=== PATIENT | male | born 1965 | race Hispanic/Latino ===

== ENCOUNTER → 2019-01-16 | Outpatient (CLI) | payer OTHER | LOC: LAB.O 10:39 | PROVIDERS: ATTEND Internal Medicine | DX: C20 Malignant neoplasm of rectum (principal) ==

== ENCOUNTER → 2019-02-11 | Outpatient (CLI) | payer OTHER | LOC: YCFC.O 14:23 | PROVIDERS: ATTEND Family Medicine | DX: K74.60 Unspecified cirrhosis of liver (principal); E11.9 Type 2 diabetes mellitus without complications; Z12.5 Encounter for screening for malignant neoplasm of prostate; R53.83 Other fatigue ==

== ENCOUNTER 2019-02-17 16:10 | Inpatient (IN) | payer OTHER ==
[2019-02-17] MEDS ORDERED: SODIUM CHLORIDE 0.9% 1000ML 1,000 ML IVS ONE ×2 (16:24→20:57)
[2019-02-17] MEDS ORDERED: ONDANSETRON INJ 4 MG/2 ML VIAL IV ONE (16:24)
--- NOTE | 2019-02-17 16:25 | ED.PDOC ---
History of Present Illness - General Chief Complaint: GI Problem Time Seen by Provider: 02/17/19 16:23 Information Source: patient Exam Limitations: no limitations - History of Present Illness Initial Comments: 53 yo M with PMH sig for liver cancer and cirrhosis d/c from hospice several weeks ago, trying to establish care with PCP and pain management as he is currently on [place] and methadone from hospice who presents from Dr. Parker's office for abd pain with associated n/v. Pt states he has chronic abd pain in the RUQ/epigastric region, consistent with today but it is worse, he thinks that his refill of methadone was decreased in strength from his normal. Emesis in [place], he has been unable to keep anything down. Denies recent travel, has been in [place] for two years, his hospice was from [place]. Denies f/c, cough, congestion, CP, SOB, diarrhea, blood in stool, urinary sx. Review of Systems - Review of Systems Constitutional: Denies: chills, fever EENTM: Denies: ear pain, nose congestion, throat pain Respiratory: Denies: cough, orthopnea Cardiology: Denies: chest pain, palpitations, syncope Gastrointestinal/Abdominal: States: abdominal pain, nausea, vomiting. Denies: constipation, diarrhea Genitourinary: Denies: dysuria, frequency, hematuria Musculoskeletal: Denies: back pain, neck pain Skin: Denies: lesions, rash Neurological: Denies: headache, numbness, weakness Family Medical History - Family History Mother Family History: Unknown Father Family History: No Known Living Status: Still Living Age at (years of age): 82 Physical Exam - Physical Exam General Appearance: Alert, Comfortable, No apparent distress, Well Developed, Well Nourished, Other - Appears chronically ill Eyes, Ears, Nose, Throat Exam: PERRL/EOMI, other - dry mucous membranes, no scleral icterus Neck: non-tender, full range of motion, supple, normal inspection Respiratory: lungs clear, normal breath sounds, no respiratory distress, no accessory muscle use Cardiovascular/Chest: normal peripheral pulses, regular rate, rhythm, no edema, no gallop, no JVD, no murmur Peripheral Pulses: No deficit Gastrointestinal/Abdominal: normal bowel sounds, soft, no pulsatile mass, tenderness - mild to epigastric and RUQ, hepatomegaly Back Exam: no CVA tenderness Extremity: normal range of motion, non-tender, normal inspection, no pedal edema, no calf tenderness, normal capillary refill Neurologic: no motor/sensory deficits, alert, normal mood/affect, oriented x 3 Skin Exam: normal color, warm/dry Progress - Progress Progress: I have explained and reviewed all results with the pt. I explained the need for admission, pt agrees with plan, all questions and concerns addressed. Dr. Parker came down to see pt, he discussed with midlevel Chente Ohara for admitting. Chente subsequently talked to client service consultant surgeon Dr. Andres. Chente then discussed with me consult, Dr. Andres would like to defer antibx at this time, Chente accepts for admission. Anna Pruitt MD Emergency Medicine Physician Billing Number [id number] - Results/Orders Results/Orders: 02/17/19 18:20 BLOOD CULTURE Stat Laboratory Results - last 24 hr 02/17/19 02/17/19 02/17/19 16:24 16:24 16:24 WBC 5.1 RBC 3.98 L Hgb 11.8 L Hct 35.9 L MCV 90.2 MCH 29.8 MCHC 33.0 RDW 13.3 Plt Count 207 MPV 6.8 L Absolute Neuts (auto) 3.90 Absolute Lymphs (auto) 0.60 L Absolute Monos (auto) 0.50 Absolute Eos (auto) 0.00 Absolute Basos (auto) 0.00 Neutrophils % 76.3 Lymphocytes % 12.5 L Monocytes % 9.9 H Eosinophils % 0.7 L Basophils % 0.6 Sodium 136 Potassium 3.2 L Chloride 96 L Carbon Dioxide 27 Anion Gap 16.2 BUN 33 H Creatinine 1.95 H BUN/Creatinine Ratio 16.9 Random Glucose 136 H Serum Osmolality 281.3 Calcium 8.6 Total Bilirubin 2.0 H AST 30 ALT 15 Alkaline Phosphatase 106 Troponin I Serum Total Protein 9.6 H Albumin 3.2 Globulin 6.4 H Albumin/Globulin Ratio 0.5 L Lipase 33 02/17/19 16:24 WBC RBC Hgb Hct MCV MCH MCHC RDW Plt Count MPV Absolute Neuts (auto) Absolute Lymphs (auto) Absolute Monos (auto) Absolute Eos (auto) Absolute Basos (auto) Neutrophils % Lymphocytes % Monocytes % Eosinophils % Basophils % Sodium Potassium Chloride Carbon Dioxide Anion Gap BUN Creatinine BUN/Creatinine Ratio Random Glucose Serum Osmolality Calcium Total Bilirubin AST ALT Alkaline Phosphatase Troponin I < 0.02 Serum Total Protein Albumin Globulin Albumin/Globulin Ratio Lipase CT abd/pelvis: EXAM: Abdomen/Pelvis w/Contrast CLINICAL INDICATION: Abdominal pain. COMPARISON: There is no previous study for comparison. TECHNIQUE: The CT scan was done using contiguous axial 5 mm postcontrast sections through the abdomen and pelvis including IV contrast. This exam was performed according to our departmental dose-optimization program, which includes automated exposure control, adjustment of the mA and/or kV according to patient size and/or use of iterative reconstruction technique. FINDINGS: The visualized portions of the lung bases reveal consolidation in the posterior left lower lobe. Mild bibasilar scarring is noted. There is a moderate amount of free fluid throughout the abdomen including overlying the liver, somewhat compressing and deforming the right hepatic lobe. The liver is otherwise unremarkable. Gallstones are noted in the gallbladder. The spleen is unremarkable. The pancreas is diffusely atrophic. The adrenal glands and kidneys are unremarkable. There is no free air. The peritoneum appears mildly thickened and enhancing especially in the upper abdomen anteriorly. There are several mildly dilated fluid-filled loops of small bowel in the anterior mid to lower abdomen and pelvis. The aorta is normal in caliber. IMPRESSION: 1. Moderate free fluid throughout the abdomen. Somewhat thickened and enhancing appearance of the peritoneum, which may indicate underlying infectious process. 2. Cholelithiasis. 3. Multiple mildly dilated loops of small bowel suggesting either mild small bowel obstruction versus ileus. Electronically signed by: Michoacano Aguilera MD 02/17/2019 5:33 PM ASSISTANT PROFESSOR OF [employer]IMINAL JUSTICE Vital Signs - 24 hr 02/17/19 02/17/19 16:16 19:01 Temperature 98.0 F 96.4 F L Pulse Rate [ 83 67 left brachial] Respiratory 20 20 Rate Blood Pressure 137/86 132/80 [left brachial] O2 Sat by Pulse 100 100 Oximetry - EKG/XRAY/CT EKG: Sinus Comments: Low voltage QRS, poor R wave progression, T wave flattening, norm ST Departure - Departure Clinical Impression: Small bowel obstruction, Chronic anemia CKD (chronic kidney disease) Qualifiers: Chronic kidney disease stage: unspecified stage Qualified Code(s): N18.9 - Chronic kidney disease, unspecified Time of Disposition: 17:52 Disposition: Admit Patient Condition: Fair Home Medications: Ambulatory Orders Furosemide 40 mg PO DAILY 02/17/19 HYDROcodone 10MG/APAP 325MG [[place] 103[address]] 1 ea PO Q4H PRN 02/17/19 Methadone HCl 15 mg PO BID 02/17/19 Neomycin Sulfate 1,000 mg PO DAILY 02/17/19 Promethazine HCl 25 mg PO Q6H PRN 02/17/19 Spironolactone 25 mg PO DAILY 02/17/19
--- NOTE | 2019-02-17 17:35 | CT ---
EXAM: Abdomen/Pelvis w/Contrast CLINICAL INDICATION: Abdominal pain. COMPARISON: There is no previous study for comparison. TECHNIQUE: The CT scan was done using contiguous axial 5 mm postcontrast sections through the abdomen and pelvis including IV contrast. This exam was performed according to our departmental dose-optimization program, which includes automated exposure control, adjustment of the mA and/or kV according to patient size and/or use of iterative reconstruction technique. FINDINGS: The visualized portions of the lung bases reveal consolidation in the posterior left lower lobe. Mild bibasilar scarring is noted. There is a moderate amount of free fluid throughout the abdomen including overlying the liver, somewhat compressing and deforming the right hepatic lobe. The liver is otherwise unremarkable. Gallstones are noted in the gallbladder. The spleen is unremarkable. The pancreas is diffusely atrophic. The adrenal glands and kidneys are unremarkable. There is no free air. The peritoneum appears mildly thickened and enhancing especially in the upper abdomen anteriorly. There are several mildly dilated fluid-filled loops of small bowel in the anterior mid to lower abdomen and pelvis. The aorta is normal in caliber. IMPRESSION: 1. Moderate free fluid throughout the abdomen. Somewhat thickened and enhancing appearance of the peritoneum, which may indicate underlying infectious process. 2. Cholelithiasis. 3. Multiple mildly dilated loops of small bowel suggesting either mild small bowel obstruction versus ileus. Electronically signed by: Michoacano Aguilera MD 02/17/2019 5:33 PM CARDIAC TECHNOLOGIST
[2019-02-17] MEDS ORDERED: ONDANSETRON INJ 4 MG/2 ML VIAL IV PRN (20:53)
[2019-02-17] MEDS ORDERED: SODIUM CHLORIDE 0.9% (FLUSH) 10 ML SYG IV PRN (20:53)
[2019-02-17] MEDS: IV SET AND CAP CHANGE INJ INJ SCH (21:14)
[2019-02-17] MEDS: MORPHINE SULFATE INJ 10 MG/ML VIAL IV PRN (21:27)
[2019-02-17] MEDS: KCL 20MEQ/D5NS 1,000 ML IVS PRN (22:19)
[2019-02-18] MEDS: PANTOPRAZOLE SODIUM IV 40 MG VIAL IV SCH (06:06)
[2019-02-18] MEDS: KCL 20MEQ/D5NS 1,000 ML IVS PRN (06:31)
--- NOTE | 2019-02-18 07:44 | RAD ---
EXAM DESCRIPTION: Abdomen Flat Upright CLINICAL HISTORY: SBO COMPARISON: None. FINDINGS: AP supine and upright views of the abdomen show air-filled mildly dilated loops of small bowel in the central abdomen with scattered air-fluid levels. Mild bowel wall thickening is seen. There is seen in the descending to rectosigmoid colon. Multiple calcifications in the right upper quadrant of the abdomen. No free intraperitoneal air. Mild blunting of the left costophrenic angle. IMPRESSION: Findings suggest partial mid small bowel obstruction. Continued follow-up recommended. Mild bowel wall thickening of loops of small bowel central abdomen are seen. Small left pleural effusion is identified. Electronically signed by: Wai Dahl MD 02/18/2019 7:[address] [facility]
--- NOTE | 2019-02-18 08:59 | HP ---
SUPERVISING PHYSICIAN: Carlton Jim MD CHIEF COMPLAINT: Nausea, vomiting, abdominal pain. HISTORY OF PRESENT ILLNESS: Mr. Page is a 51-year-old male patient with a history of liver cancer and cirrhosis having previously been on hospice. He was trying to get established with a primary care physician for pain management as he is on [place] and methadone from his hospice. He saw Dr. Parker in the office today and was having some abdominal pains with associated nausea and vomiting. He endorsed that he has been having right upper quadrant and epigastric pain on and off for the last 4 days and unable to hold any solid food down. He does have a longstanding history of alcoholism, but has not had a drink in over 4 years. He endorses that every time he eats, he vomits, and nothing has been working including liquid diet as well as Phenergan. He denied any chest pains, bloody stools, dysuria or significant cough. Of significance, he was just taken off hospice for cirrhosis and liver cancer while in [place] and just moved to [place] as he does have family here. In the clinic, given his findings and history, he was sent to the Emergency Room for evaluation for additional laboratory studies and imaging. His white count was normal at 5,100. Chemistry showed just a mildly low potassium of 3.2. BUN elevated at 33, creatinine 1.95. Bilirubin was slightly elevated, but AST, ALT and alkaline phosphatase were all within normal limits as well as troponin. Lipase was also within normal limits at 33. He had an abdominopelvic CT with contrast given his history of abdominal pain and cirrhosis and cancer. Radiology noted there was moderate free fluid throughout the abdomen with somewhat thickened and enhanced appearance of the peritoneum along with cholelithiasis and multiple mildly dilated loops of small bowel suggesting either a small bowel obstruction or ileus. Dr. Andres requested the patient be admitted for surgical consultation given his history and questionable small bowel obstruction. Dr. Andres was consulted prior to admission and he recommended the patient be admitted for medical management of his small bowel obstruction versus ileus and further evaluation and additional testing. He was admitted in stable condition. PAST MEDICAL HISTORY: 1. Cirrhosis with liver cancer diagnosed 4 years previously. 2. Questionable hepatitis C infection. 3. Diabetes mellitus on oral therapy. PAST SURGICAL HISTORY: 1. Cryotherapy for treatment of underlying cirrhosis. No other listed major surgeries or procedures. HOME MEDICATIONS: 1. Spironolactone 25 mg daily. 2. Phenergan 25 mg q.6h. as needed. 3. Methadone 15 mg b.i.d. 4. Neomycin 1000 units daily. 5. [place] 10/325 1 q.4h. as needed. 6. Lasix 40 mg daily. ALLERGIES: NO KNOWN DRUG ALLERGIES. FAMILY HISTORY: Noncontributory. 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 He recently moved from [place] to [place] and lives with his brother. He does have a remote history of smoking 20 years previously, but quit well over 20 years ago. He does have a history of alcohol abuse, but has not had a drink in over 4 years. REVIEW OF SYSTEMS: CONSTITUTIONAL: Negative for any fevers, chills. HEENT: Negative for sore throats, earaches, nasal congestion, headaches, vision changes. RESPIRATORY: Denies coughing, orthopnea or exertional dyspnea. CARDIOVASCULAR: Negative for chest pain, palpitations or syncopal episodes. GASTROINTESTINAL: As noted in history of present illness, abdominal pain, nausea and vomiting. Denies constipation or diarrhea. GENITOURINARY: Negative for dysuria, hematuria, polyuria. MUSCULOSKELETAL: Negative for back pain, neck pain. SKIN: Negative for lesions, rashes or moles. NEUROLOGIC: Negative for headaches, dizziness, numbness, weakness, seizures, ataxia or other focal deficits. PHYSICAL EXAMINATION: VITAL SIGNS: On admission, temperature 98. Pulse 83. Blood pressure 137/86. Saturation 100% on room air. Respirations 20. Admission weight 69.5 kg. GENERAL: The patient does appear ill, cachectic, but he is well kept, well groomed, pleasant and alert. HEENT: Tympanic membranes clear bilaterally. Oropharynx is pink with dry mucous membranes. NECK: Supple, nontender with full range of motion. No jugular venous distention noted. RESPIRATORY: Lungs clear to auscultation bilaterally without any rhonchi, wheezes or rales. CARDIOVASCULAR: Regular rate and rhythm without any appreciable murmurs, gallops, or rubs. ABDOMEN: Thin, soft with notable tenderness to palpation over the epigastric region just to above the umbilicus. No rebound tenderness. Positive bowel sounds. EXTREMITIES: There is no edema. NEUROLOGIC: The patient is alert and oriented times three. LABORATORY: White count 5,100, hemoglobin 11.8, hematocrit 35.9, platelet count 207,000. Differential without left shift. Coagulations studies pending. Chemistry showed sodium 136, potassium 3.2, BUN 33, creatinine 1.95, calcium 8.6, bilirubin slightly elevated at 2.0. Alkaline phosphatase, AST and ALT were all within normal limits. Troponin less than 0.02. Lipase normal at 33. Urinalysis showed trace intact blood, small amount of bilirubin and urobilinogen, otherwise within normal limits. MICROBIOLOGY: Blood cultures pending. RADIOLOGY: Abdominopelvic CT with contrast per radiologic interpretation shows multiple mildly dilated loops of small bowel suggestion small bowel obstruction or ileus along with cholelithiasis and some moderate free fluid throughout the abdomen with some somewhat thickened and dense appearance of the peritoneum. ASSESSMENT: 1. Acute abdominal pain with a history of cirrhosis and liver cancer. 2. Nausea and vomiting witch associated abdominal pain with CT findings concerning for a possible small bowel obstruction versus ileus with surgical consultation pending. 3. Diabetes mellitus, type 2, on oral therapy. 4. History of chronic tobacco and alcohol abuse with the patient being alcohol free for over 4 years. 5. Renal insufficiency, likely prerenal azotemia due to some mild dehydration. PLAN: Mr. Page is going to be admitted for questionable small bowel obstruction. I will get a consultation with Dr. Andrse. The patient will be NPO. He will be on pain management and fluids and antiemetics as need. He will need additional imaging study in the morning to include gallbladder which will be pending followup with Dr. Andres. He will be on pain management with morphine. If he continues to have persistent nausea and vomiting, we will have to consider possible placement of NG tube. We will follow labs in the morning and add in addition to that a PT, PTT and ammonia level. I would anticipate his length of stay to be 2 to 3 days. We will put him on some aggressive fluid management while he is NPO. He will be on sliding scale per insulin protocol. We will hold on DVT prophylaxis until we can get additional labs in the morning and followup with Dr. Andres. Until the patient can transition to outpatient management, we will continue to monitor and treat as needed. #[id number] [facility]
[2019-02-18] MEDS: KCL 40 MEQ/D5 1/2NS 1,000 ML IVS PRN ×2 (09:25→17:44)
--- NOTE | 2019-02-18 10:52 | US ---
EXAM DESCRIPTION: Abdomen,Complete: Ultrasound. CLINICAL HISTORY: 53 years Malegallstones COMPARISON: CT scan abdomen and pelvis on the same visit. TECHNIQUE: Transabdominal scanning: grayscale and Doppler modes. FINDINGS: Peritoneal fluid in all 4 quadrants. Gallbladder: Wall thickness abutting the liver 2.8 mm. Over 4 mm on the free edge, commonly seen with ascites. 5.4 mm echogenic object in the gallbladder wall/lumen, no acoustic shadowing and nonmobile. A second similar-appearing and similar size object measuring 6.1 mm. Phrygian cap or septation near the neck of the gallbladder. Multiple mobile gallstones in the dependent portion of the gallbladder which are echogenic and also acoustic shadowing. No fluid on the hepatic wall. Nontender with transducer pressure. Common bile duct: 5.3 mm normal caliber. Liver: Long axis right lobe 15.5 cm. Smooth capsule. Heterogeneous echogenicity. Normal caliber of the portal vein with hepatopedal flow. Normal caliber of the ducts. Pancreas: Partially visualized. Duct not dilated.. Abdominal aorta: Not well seen. IVC: visualized; normal caliber. Spleen normal echogenicity; long axis measurement is 14 cm. Right kidney: 10.1 cm long axis. Mid renal cortical thickness 11 mm. Increased echogenicity equal to the liver. No echogenic stones or hydronephrosis. Left kidney: 10.1 cm Long axis. Normal cortical thickness and echogenicity. No echogenic stones or hydronephrosis. IMPRESSION: 1. Gallbladder contains at least 2 echogenic mobile gravity dependent stones which were also seen on the CT scan. No wall thickness. At least 2 wall polyps, nonmobile, which may represent the radiodense objects seen in the CT gallbladder which were non gravity dependent. Nontender with transducer pressure. Normal wall thickness on the hepatic side. Common bile duct normal caliber. 2. 4 large quadrants of peritoneal ascites. 3. Normal size of the liver and normal vascular flow and caliber of the ducts. Heterogeneous density. Smooth capsule. Pancreas not well seen. Abdominal aorta not well seen. 4. Right renal cortical thinning and increased echogenicity with left kidney unremarkable. Electronically signed by: Guerrero Davison MD 02/18/2019 10:51 AM YARD SPECIALIST
[2019-02-18] MEDS ORDERED: SODIUM PHOS/BIPHOS ENEMA ADULT 133 ML BTTL PR ONE (14:21)
--- NOTE | 2019-02-18 18:47 | PN ---
DATE: 02/18/19 SUPERVISING PHYSICIAN: Wyatt Jim M.D. SUBJECTIVE: The patient is sitting up in bed. He states he feels much better. He has had some mild nausea but no vomiting since yesterday. He still complains that his belly hurts, but again that is improving. Denies chest pain, constipation or diarrhea. OBJECTIVE: VITAL SIGNS: Temperature 98.7, heart rate 64, blood pressure 121/74, respiratory rate 16, O2 saturation 99% on room air. RESPIRATORY: Essentially clear to auscultation bilaterally. CARDIAC: Regular rate and rhythm. GASTROINTESTINAL: Abdomen is soft. It is slightly tender to the epigastric area. There is no rebound tenderness or guarding. Bowel sounds are positive. NEUROLOGIC: He is awake, alert and oriented times three. LABORATORY: WBCs are 3,100, hemoglobin 9.9, hematocrit 29.7. Electrolytes are basically within normal limits with the exception of his potassium is slightly low at 3.5 and calcium is low at 8.1, bilirubin is 1.3 with a direct bilirubin of 0.6 and indirect bilirubin of 0.7. Preliminary blood cultures are negative to date. Abdominal x-ray shows findings to suggest partial mid small bowel obstruction. Continued followup recommended. Mild bowel wall thickening of loops of small bowel central abdomen are seen. Small left pleural effusions identified. Abdominal ultrasound shows: 1. Gallbladder contains at least 2 echogenic mobile gravity dependent stones which are also seen on the CT scan. No wall thickness. At least 2 wall polyps, nonmobile which may represent the radiodense objects seen in the CT gallbladder which were non-gravity dependent, non-tender with transducer pressure normal wall thickness on the hepatic side, bile duct normal caliber. 2. Four large quadrants of peritoneal ascites. 3. Normal size of the liver and normal vascular flow and caliber of the ducts. Heterogeneous density. Smooth capsule. Pancreas not well seen. Abdominal aorta not well seen. 4. Right renal cortical thinning and increased echogenicity with left kidney unremarkable. All other labs and films have been reviewed via the EMR. ASSESSMENT: 1. Acute abdominal pain with a history of cirrhosis and liver cancer. 2. Nausea and vomiting with associated abdominal pain with CT findings concerning for a possible small bowel obstruction versus ileus. 3. Diabetes mellitus, type 2, on oral therapy. 4. History of chronic tobacco abuse, including vaping as well as alcohol abuse. The patient has been alcohol free for over 4 years. 5. Renal insufficiency, likely prerenal azotemia due to some mild dehydration. 6. Constipation. PLAN: We will continue present supportive care. Dr. Andres has seen the patient. He did recommend that I speak with a GI consult. I spoke with Dr. Walls with [facility] and at this point he recommends that evaluation for a paracentesis to be done which would make the patient more comfortable and to continue to treat him as a small bowel obstruction. He will need to see one of the physicians from [facility] in the next 1 to 2 weeks for further evaluation of his liver as well as his abdominal problems. I did order an abdominal sonogram and Dr. Andres plans to do a paracentesis tomorrow at 9:30. We have changed his IV fluids and will continue to give him bowel rest. He has had a [place] enema and I have ordered lab and x-ray for in the morning. Will continue to monitor closely and follow as needed. #[id number] [facility]
--- NOTE | 2019-02-18 20:02 | CONS ---
DATE OF CONSULTATION: 02/18/19 REFERRING PHYSICIAN: Hospital[facility] Service[facility] and Wyatt Jim M.D. HISTORY OF PRESENT ILLNESS: The patient is a 51 year-old male who was admitted after seeing Dr. Parker in the clinic. He states that he has a history of hepatic cirrhosis. He is an alcoholic that no longer drinks and was treated for a malignancy of his liver. He was on hospice with an expectation to live for two years after the treatment of liver tumor, however he is now 4-1/2 years and he has developed nausea and vomiting with some discomfort, but he has been unable to hold down even liquids. His last bowel movement has been quite some time. I have been asked to help with further workup and treatment once his information is obtained. The patient does not have biopsy reports or oncology reports. PAST MEDICAL HISTORY: 1. Cirrhosis with liver cancer. 2. Hepatitis C. 3. Possibly diabetes mellitus. PAST SURGICAL HISTORY: 1. He has undergone cryotherapy for the tumor. CURRENT MEDICATIONS: 1. Spironolactone. 2. Phenergan. 3. Methadone. 4. Neomycin. 5. Woolwine. 6. Lasix. 7. The patient also told me Lactulose. ALLERGIES: NO KNOWN DRUG ALLERGIES. FAMILY HISTORY: Noncontributory. 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 Moved from [place] to [place] 2 years ago. He smoked but quit over 20 years ago. Probably has a 20 pack year history of tobacco use. He has a history of alcohol abuse but has not had a drink in 4 years. REVIEW OF SYSTEMS: There has been no bloody vomitus. No melena. No hematemesis. There has been some weight loss. The patient states that his abdomen, which has been distended multiple times in the past, is only minimally distended now. He denies problems with voiding. PHYSICAL EXAMINATION: VITAL SIGNS: GENERAL: Awake, alert and cooperative and in no acute distress. HEENT: Sclera are nonicteric. Mucous membranes are moist. NECK: Without adenopathy. BACK: Without CVA tenderness. CHEST: He has equal breath sounds bilaterally. HEART: Regular rhythm. ABDOMEN: Soft. There is mild tenderness, especially in the epigastrium without discrete mass. RECTAL: Examination is deferred. EXTREMITIES: Without clubbing, cyanosis or edema. LABORATORY: White count 5,000 on admission. It is now down to 3.1. Hemoglobin went from 11.8 to 9.9. Platelet count is within normal limits. He has a normal differential. Liver functions revealed a bilirubin of 2, everything else was within normal limits. Lipase was within normal limits. Blood cultures were ordered. CT scan of the abdomen reveals dilated loops of small bowel consistent with a partial small bowel obstruction or ileus. He has cholelithiasis and free fluid, and stool in the rectum. Today's ultrasound reveals fluid with gallstones but no acute changes consistent with cholecystitis. Today's x-ray of the abdomen reveals continued small bowel dilation consistent with partial ileus or partial small bowel obstruction. IMPRESSION: 1. Acute nausea and abdominal pain consistent for small bowel obstruction versus ileus. 2. History of cirrhosis and liver cancer which is not discernible from the CT scan or the ultrasound. 3. Ascites of uncertain etiology. 4. Diabetes. 5. Alcohol abuse. PLAN: The plan will be to perform a sonogram guided paracentesis for culture, cytology and any other needed testing. Will also culture and also give an enema in an attempt to get his bowels to begin to work as there is a large amount of stool in the rectum. #[id number] [facility]
[2019-02-19] MEDS: KCL 40 MEQ/D5 1/2NS 1,000 ML IVS PRN ×3 (01:05→16:49)
[2019-02-19] MEDS: PANTOPRAZOLE SODIUM IV 40 MG VIAL IV SCH (06:28)
--- NOTE | 2019-02-19 07:35 | RAD ---
EXAM DESCRIPTION: Abdomen Flat Upright CLINICAL HISTORY: fu part bowel obstruction COMPARISON: February 18, 2019 FINDINGS: AP supine and upright views of the abdomen show air-filled dilated loops of small bowel throughout the central abdomen with scattered air-fluid levels. Small amount of air in the colon. No free intraperitoneal air. Multiple calcified gallstones in the right upper quadrant of the abdomen are seen area Mild blunting of the left costophrenic angle. Linear interstitial thickening in the left lower lobe retrocardiac region is seen. IMPRESSION: Abdominal series continues to demonstrate at least moderate partial small bowel obstruction. More air is seen in the colon on today's exam than previous although the air-filled dilated loops of small bowel are similar to slightly increased from previous. Continued follow-up is recommended. Small left pleural effusion with probable atelectasis or infiltrate in the left lower lobe retrocardiac region. Cholelithiasis. Electronically signed by: Wai Dahl MD 02/19/2019 7:33 AM [facility]
--- NOTE | 2019-02-19 10:48 | OP ---
DATE OF PROCEDURE: 02/19/19 PREOPERATIVE DIAGNOSIS: 1. Ascites of uncertain etiology. POSTOPERATIVE DIAGNOSIS: 1. Ascites of uncertain etiology. PROCEDURE PERFORMED: 1. Sonographically guided paracentesis. SURGEON: Zheng Andres MD. RUG FRAME MOUNTER: None. ANESTHESIA: Local infiltration of 1% lidocaine. INDICATION: The patient is a 53-year-old male who is said to have a longstanding diagnosis of hepatocellular carcinoma and cirrhosis. He had been under the care of people in [place], [place]. He had moved here a couple of years ago and has been on hospice, but has done well generally on oral diuretics. I have seen him and he also has a question of a partial small bowel obstruction. There appears to be some mass effect on some of the CT scan pictures, so a diagnostic paracentesis is proposed and will be done today. FINDINGS: Approximately 2400 mL of bloody fluid was obtained without difficulty. PROCEDURE: The patient was left flat in his bed with the head of the bed slightly elevated. He was examined by the hospital technician and a good pocket was noted in the midline in the lower abdomen. The abdomen was prepped on the patient's left side of the probe, which is essentially in the midline, and draped. When this was done, local infiltration of anesthesia was obtained and a 22 gauge needle was introduced under ultrasound guidance into the fluid collection and a small amount of fluid was obtained. Local anesthesia was placed in the subcutaneous tissues. When this was done, a stab wound was made with an 11 blade and paracentesis needle was introduced under direct vision into the abdominal cavity. Fluid was obtained. The needle was withdrawn and the catheter advanced. When this was done, approximately 240 mL of fluid was obtained using the three-way stopcock and syringe. The specimens were taken from this fluid for culture and the chemistries. When this was done, it was connected to suction canisters and the remaining fluid was obtained without difficulty. The catheter was removed. The space was obliterated with massage and sterile band-aid was placed over the incision. The patient tolerated the procedure well. There was no blood loss identified. #[id number] [facility]
[2019-02-19] MEDS: LACTULOSE SYRUP 20 GM/30 ML UD PO SCH ×2 (10:59→15:22)
--- NOTE | 2019-02-19 11:07 | US ---
EXAM DESCRIPTION: Paracentesis: Ultrasound CLINICAL HISTORY: paracentesis COMPARISON: CT scan of the abdomen February 17 and ultrasound scan of the abdomen February 18. TECHNIQUE: The procedure was performed by Dr. Andres. Sterile preparation and technique. Ultrasound guidance prior to procedure to localize site for insertion of catheter, anterior abdominal wall. Specimens for cytology and culture were collected for laboratory evaluation. 2300 mL fluid was removed. FINDINGS: Scanning of all 4 quadrants of the abdomen. Moderate amount of fluid in each quadrant. Images taken during the procedure shows the echogenic paracentesis catheter within the fluid collection in the midline lower abdomen. IMPRESSION: Ultrasound prior to, and during paracentesis. 2300 mL of fluid was removed. Pathology reports pending. Electronically signed by: Guerrero Davison MD 02/19/2019 11:06 AM HYDRAMATIC SPECIALIST
[2019-02-19] MEDS: MORPHINE SULFATE INJ 10 MG/ML VIAL IV PRN ×2 (19:14→22:02)
[2019-02-20] MEDS: KCL 40 MEQ/D5 1/2NS 1,000 ML IVS PRN ×2 (00:31→08:36)
[2019-02-20] MEDS: PANTOPRAZOLE SODIUM IV 40 MG VIAL IV SCH (06:15)
--- NOTE | 2019-02-20 08:17 | RAD ---
EXAM DESCRIPTION: Abdomen Flat Upright: CR/DR/XR. CLINICAL HISTORY: SBO. ascites. COMPARISON: Abdomen flat and upright February 19. TECHNIQUE: 2 views. Abdomen and pelvis supine and abdomen and upper chest upright. FINDINGS: Distention still noted in the mid jejunum and proximal ileum. Small air-fluid levels. No free air. Fecal material in the proximal and mid colon with mostly gas in the rectosigmoid. Hazy appearance of the abdomen consistent with ascites. No free air under the diaphragms. Density in the left base abutting the diaphragm. IMPRESSION: Minimal distention of the distal jejunum or proximal ileum but no significant air-fluid levels. Stable since the prior study. No free air. Receiving fecal material in the colon with gas in the rectosigmoid. Atelectasis versus infiltrate in the left lung base stable. Electronically signed by: Guerrero Davison MD 02/20/2019 8:16 AM [facility]
--- NOTE | 2019-02-20 09:24 | PN ---
SUPERVISING PHYSICIAN: Carlton Jim MD DATE: 02/19/19 SUBJECTIVE: The patient is sitting up in bed. He had paracentesis earlier today by Dr. Andres. They removed about 2400 mL. He tolerated it well. He has no complaints at this point. He denies any shortness of breath, nausea or vomiting. His abdomen is still somewhat tender, but it has improved since yesterday. OBJECTIVE: VITAL SIGNS: Temperature 98.2. Heart rate 67. Blood pressure 116/78. Respiratory rate16. O2 saturation 100% on room air. RESPIRATORY: Essentially clear to auscultation bilaterally. CARDIAC: Regular rate and rhythm. GASTROINTESTINAL: Abdomen is soft. It is nondistended. He is mildly tender in the epigastric and umbilical area. Bowel sounds are positive. NEUROLOGIC: He is awake, alert and oriented times three. LABORATORY: WBCs 3,600, hemoglobin 9.9, hematocrit 30.2. Electrolytes are basically within normal limits. Creatinine is 1.41, bilirubin 1.1, ammonia 65. His abdominal series continues to demonstrate at least moderate to partial small bowel obstruction. More air is in the colon on today's exam than previous although the air-filled dilated loops of small bowel are similar to slightly increased from previous. Continued followup recommended. A small left pleural effusion with probable atelectasis or infiltrate in the left lower lobe, retrocardiac region. Cholelithiasis. All other labs and films have been reviewed via the EMR. ASSESSMENT: 1. Acute abdominal pain with a history of cirrhosis and liver cancer. 2. Nausea and vomiting with associated abdominal pain with CT findings concerning for a possible small bowel obstruction versus ileus. 3. Diabetes mellitus, type 2, on oral therapy. 4. History of chronic tobacco abuse, including vaping as well as alcohol abuse. The patient has been alcohol free for over 4 years. 5. Renal insufficiency, likely prerenal azotemia due to some mild dehydration. 6. Constipation. PLAN: We will continue present supportive care. We will follow Dr. Andres's recommendations at this time. He did get some lactulose today. He does take it on a routine basis, but his routine medications have not been restarted. He continues to be NPO and we will re-address his home medications once he starts taking oral medications. Dr. Walls, electrical subcontractor, recommend the patient followup with one of their physicians for a complete GI workup, especially given his history of liver cancer. [facility] [place] does not take his insurance. He does have a followup appointment with his primary care physician, Dr. Parker, and it is recommended that Dr. Parker's office get him in for a GI consult as soon as possible. Lab has been ordered for in the morning as well as an abdominal x-ray. I have also ordered an ammonia level for in the morning. We will continue to monitor the patient closely and follow as needed. #[id number] [facility]
[2019-02-20] MEDS ORDERED: LACTULOSE SYRUP 20 GM/30 ML UD PO ONE (10:34)
[2019-02-20] MEDS ORDERED: HYDROcodone 10MG/APAP 325MG 1 EA TAB PO PRN (13:58)
[2019-02-20] MEDS: METHADONE HCL 10 MG TAB PO SCH ×2 (14:38→21:10)
[2019-02-20] MEDS: IV SET AND CAP CHANGE INJ INJ SCH (21:12)
[2019-02-21] MEDS: PANTOPRAZOLE SODIUM IV 40 MG VIAL IV SCH (06:54)
--- NOTE | 2019-02-21 08:07 | RAD ---
EXAM DESCRIPTION: Abdomen Flat Upright CLINICAL HISTORY: 53 years Male, FU BOWEL OBSTRUCTION COMPARISON: 02/20/2019. FINDINGS/IMPRESSION: Frontal views of the abdomen was obtained. Few mildly prominent gas-filled loops of small bowel within the left abdomen measuring up to 3.9 cm, nonspecific, but may represent mild small bowel ileus and appears unchanged. Gas and stool is present within the colon. No gross free intra-abdominal air is seen. No abnormal calcifications are seen. Left basilar subsegmental atelectasis. Electronically signed by: Ryan Israel DO 02/21/2019 8:[address] [facility]
[2019-02-21] MEDS: SPIRONOLACTONE 25 MG TAB PO SCH (08:33)
[2019-02-21] MEDS: FUROSEMIDE 40 MG TAB PO SCH (08:33)
[2019-02-21] MEDS: METHADONE HCL 10 MG TAB PO SCH ×2 (08:34→21:12)
--- NOTE | 2019-02-21 11:53 | PN ---
DATE: 02/20/19 SUPERVISING PHYSICIAN: Wyatt Jim M.D. SUBJECTIVE: The patient is still having a little bit of abdominal pain but he says he is tolerating clear liquids. He has been up ambulating. He feels better since they removed some of the fluid during the paracentesis. He has been afebrile. OBJECTIVE: VITAL SIGNS: Temperature 98, pulse 65, blood pressure 123/75, respirations 16, satting 100% on room air. I's and O's are showing a negative balance of 980. Weight is 69.5 kg which I do not think is accurate since his paracentesis. GENERAL: The patient is resting comfortably, visiting with family. He is alert. CHEST: Lung sounds are clear to auscultation. ABDOMEN: Soft. Still a little tenderness over the epigastric region with positive bowel sounds. EXTREMITIES: Without any edema. NEUROLOGIC: He is alert and oriented times three. LABORATORY: White count 4,700, hemoglobin and hematocrit showing to be 11.7 and 35.9, platelet count 169,000. Differential shows to be without a left shift. Potassium is up a little bit at 5.5, otherwise all other electrolytes are showing within normal limits. Creatinine is up a little bit as well to 1.43, calcium 8.2, bilirubin is down to 1.1. AST and ALT are all within normal limits. Ammonia level is down to 36 today. CEA was 1.9. He still has pending studies on his peritoneal fluid. MICROBIOLOGY: Blood culture is pending. Peritoneal fluid culture pending. Blood cultures do remain negative after 3 days. RADIOLOGY: Abdominal x-ray this morning per radiology interpretation showed minimal distention of distal ileum and proximal ileum but no significant air- fluid levels. Stable since previous study. No free air. There is noted to be some fecal material within the colon with gas in the rectosigmoid and atelectasis versus infiltrate in the left lung remains stable. ASSESSMENT: 1. Acute abdominal pain with a history of cirrhosis and liver cancer status post therapeutic diagnostic paracentesis, studies pending. 2. Nausea and vomiting with associated abdominal pain with CT findings concerning for a possible small bowel obstruction versus ileus, resolving with treatment. Able to tolerate clear liquids. 3. Diabetes mellitus, type 2, on oral therapy. 4. History of chronic tobacco abuse, including vaping as well as alcohol abuse. The patient has been alcohol free for over 4 years. 5. Renal insufficiency, likely prerenal azotemia due to some mild dehydration. 6. Constipation. PLAN: Will continue to follow Dr. Andres's recommendations. We have increased his Lactulose to 2 additional doses today. He has been started on a clear liquid diet. Anticipate hopefully being able to discharge tomorrow. He will need close followup with rn social services on discharge for continued workup. He will need to followup with Dr. Parker as well. Again, I anticipate hopefully being able to discharge tomorrow. Will await Dr. Andres's recommendations. Until then continue to monitor and treat as needed. [facility][id number] [facility]
[2019-02-21] MEDS: SODIUM CHLORIDE 0.9% (FLUSH) 10 ML SYG IV SCH (21:14)
--- NOTE | 2019-02-21 21:29 | PN ---
DATE: 02/21/19 SUPERVISING PHYSICIAN: Wyatt Jim M.D. SUBJECTIVE: The patient notes that his pain is still present but it is much less than yesterday. He has had no shortness of breath. No nausea or vomiting. He has had several bowel movements. OBJECTIVE: VITAL SIGNS: Showing to be stable with temperature 98.3, pulse 72, blood pressure 110/72, respirations 16, satting 100% on room air. GENERAL: The patient is resting comfortably, visiting with family. He is alert. CHEST: Lung sounds are clear to auscultation. ABDOMEN: Soft. Still a little tenderness over the epigastric region with positive bowel sounds. EXTREMITIES: Without any edema. NEUROLOGIC: He is alert and oriented times three. RADIOLOGY: Abdominal x-ray this morning showed findings which could represent a mild small bowel ileus unchanged from 02/20/19. Please see that report for details. LABORATORY: There were no additional laboratory studies done. His peritoneal fluid analysis is still pending. MICROBIOLOGY: Cultures are still pending on the peritoneal fluid. Blood cultures remain negative at 4 days. ASSESSMENT: 1. Acute abdominal pain with a history of cirrhosis and liver cancer status post therapeutic diagnostic paracentesis, studies pending. 2. Nausea and vomiting with associated abdominal pain with CT findings concerning for a possible small bowel obstruction versus ileus, resolving with treatment. Able to tolerate clear liquids. 3. Diabetes mellitus, type 2, on oral therapy. 4. History of chronic tobacco abuse, including vaping as well as alcohol abuse. The patient has been alcohol free for over 4 years. 5. Renal insufficiency, likely prerenal azotemia due to some mild dehydration. 6. Constipation. PLAN: Per Dr. Andres's recommendations we have advanced the patient's diet to 2 gram sodium and low protein. He did well with his clear liquid last night. The plan will be that if he does tolerate his today and does well, will discharge tomorrow. Again, he will have close followup with chronic disease manager likely in [place] as the one in [place] does not accept his insurance. He will also need to followup closely with Dr. Andres as per Dr. Andres's recommendations. Until we can transition to outpatient management will continue to monitor and treat as needed. [facility][id number] [facility]
[2019-02-22 03:47] VITALS: O2SAT 99
[2019-02-22] MEDS: PANTOPRAZOLE SODIUM IV 40 MG VIAL IV SCH (06:00)
[2019-02-22] MEDS: FUROSEMIDE 40 MG TAB PO SCH (09:16)
[2019-02-22] MEDS: SPIRONOLACTONE 25 MG TAB PO SCH (09:16)
[2019-02-22] MEDS: METHADONE HCL 10 MG TAB PO SCH (09:16)
[2019-02-22] MEDS: SODIUM CHLORIDE 0.9% (FLUSH) 10 ML SYG IV SCH (09:16)
[2019-02-22 12:09] VITALS: BP 152/85; TEMP 98.2
--- NOTE | 2019-03-03 08:53 | DS ---
SUPERVISING PHYSICIAN: Carlton Jim MD ADMISSION DIAGNOSIS: 1. Acute abdominal pain with a history of cirrhosis and liver cancer. 2. Nausea and vomiting witch associated abdominal pain with CT findings concerning for a possible small bowel obstruction versus ileus with surgical consultation pending. 3. Diabetes mellitus, type 2, on oral therapy. 4. History of chronic tobacco and alcohol abuse with the patient being alcohol free for over 4 years. 5. Renal insufficiency, likely prerenal azotemia due to some mild dehydration. DISCHARGE DIAGNOSIS: 1. Acute abdominal pain with a history of cirrhosis and liver cancer status post therapeutic diagnostic paracentesis, studies pending. 2. Nausea and vomiting with associated abdominal pain with CT findings concerning for a possible small bowel obstruction versus ileus, resolving with treatment. Able to tolerate clear liquids. 3. Diabetes mellitus, type 2, on oral therapy. 4. History of chronic tobacco abuse, including vaping as well as alcohol abuse. The patient has been alcohol free for over 4 years. 5. Renal insufficiency, likely prerenal azotemia due to some mild dehydration. 6. Constipation. REASON FOR HOSPITALIZATION: Mr. Page is a 51-year-old male patient with a history of liver cancer and cirrhosis having previously been on hospice. He was trying to get established with a primary care physician for pain management as he is on [place] and methadone from his hospice. He saw Dr. Parker in the office today and was having some abdominal pains with associated nausea and vomiting. He endorsed that he has been having right upper quadrant and epigastric pain on and off for the last 4 days and unable to hold any solid food down. He does have a longstanding history of alcoholism, but has not had a drink in over 4 years. He endorses that every time he eats, he vomits, and nothing has been working including liquid diet as well as Phenergan. He denied any chest pains, bloody stools, dysuria or significant cough. Of significance, he was just taken off hospice for cirrhosis and liver cancer while in [place] and just moved to [place] as he does have family here. In the clinic, given his findings and history, he was sent to the Emergency Room for evaluation for additional laboratory studies and imaging. His white count was normal at 5,100. Chemistry showed just a mildly low potassium of 3.2. BUN elevated at 33, creatinine 1.95. Bilirubin was slightly elevated, but AST, ALT and alkaline phosphatase were all within normal limits as well as troponin. Lipase was also within normal limits at 33. He had an abdominopelvic CT with contrast given his history of abdominal pain and cirrhosis and cancer. Radiology noted there was moderate free fluid throughout the abdomen with somewhat thickened and enhanced appearance of the peritoneum along with cholelithiasis and multiple mildly dilated loops of small bowel suggesting either a small bowel obstruction or ileus. Dr. Andres requested the patient be admitted for surgical consultation given his history and questionable small bowel obstruction. Dr. Andres was consulted prior to admission and he recommended the patient be admitted for medical management of his small bowel obstruction versus ileus and further evaluation and additional testing. He was admitted in stable condition. LABORATORY: White count on admission was 5,100 and at discharge was 4,700. Hemoglobin and hematocrit were stable at 11.7 and 35.9 respectively. Platelet count was within normal limits at 169,000. Differential was without a left shift. Chemistries on discharge showed creatinine 1.43 which was improved from admission of 1.95, potassium a little elevated at 5.5, other electrolytes were within normal limits. Bilirubin on admission was 2.0 and on discharge was 1.1. Other liver functions were within normal limits. He did have an ammonia that was initially elevated at 65 and had gone down to 36 with treatment prior to discharge. CEA antigen was 1.9. Urinalysis showed trace of intact blood, small amount of bilirubin, 2.0 urobilinogen, otherwise within normal limits. He had an analysis of peritoneal fluid. Please see that report for details, most of it is still pending at time of discharge and dictated note. He has microbacterial smear cultures pending. He has multiple pathology reports. Please see all those reports for details. MICROBIOLOGY: Blood cultures negative after 5 days. Peritoneal fluid showed no growth after 72 hours. RADIOLOGY: On admission, he had an abdominopelvic CT with contrast and per radiologic interpretation showed moderate free fluid throughout the abdomen, somewhat thickened appearance of the peritoneum which may indicate underlying infectious process. There was note of cholelithiasis and multiple dilated loops of bowel suggesting a mid small bowel obstruction versus ileus. He had multiple abdominal x-rays. Final x-ray was on 02/21/19 and per radiologic interpretation showed no free gas, gas-filled small loops of bowel which could represent small bowel ileus, essentially unchanged from 02/20/19. Please see that report for details. He also had an abdominal ultrasound and per radiologic interpretation showed gallbladder containing at least 2 echoic mobile gravity dependent stones which were also seen on the CT. There were two wall polyps, nonmobile, which may represent radiodense object seen in the gallbladder which are non-gravity dependent, nontender to transducer pressure, normal wall thickness on hepatic side. Common bile duct normal caliber. There was 4 large quadrants of peritoneal ascites. Normal liver size. Normal vascular flow and caliber of the ducts. Heterogeneous density or small capsule. Pancreas not well seen. Abdominal aorta was not well seen. Right renal cortical thinning and increase echogenicity within the left kidney unremarkable. Please see that report for details. PROCEDURES: He had a paracentesis performed by Dr. Andres under ultrasound. Please see Dr. Andres's procedure note which did result in approximately 2400 mL of bloody fluid obtained without difficulty. CONSULTATION: Surgical consultation with Dr. Andres. Please see his consultation note. HOSPITAL COURSE: Mr. Page was admitted for abdominal pain and questionable ileus versus small bowel obstruction. He was made NPO and treated with antibiotics. He had a surgical consultation. He eventually had a paracentesis as noted above. He had good resolution of his symptoms and was able to tolerate clear liquids. Prior to discharge, he was no longer having any abdominal pain and had significant improvement clinically. He was felt stable enough to discharge home to continue with outpatient management. PLAN: Mr. Page was discharged on 02/22/19 with instructions to followup with Dr. Parker on 02/26/19 at 10:20 AM. He was told to return to the Emergency Department if needed to or as necessary. Diet was low protein and low sodium diet. Activity to increase as tolerated. He was to avoid alcohol and any Tylenol containing medications. Prescriptions written on discharge included: 1. Furosemide 40 mg daily, #30. 2. Lactulose 10 grams 3 times daily, no refills. 3. Neomycin sulfate 1000 mg daily, #60, no refills. 4. Spironolactone 25 mg daily, #30, no refills. DISPOSITION: The patient is discharged home. CONDITION ON DISCHARGE: Stable and improved. #[id number] [facility]
== END 2019-02-22 13:10 | disposition home or self-care (01) | DRG 389 ==
LOC: ER 16:10 → OBSVTOIN 19:50 → MS 19:50
PROVIDERS: ADMIT Nurse Practitioner Family; ATTEND Nurse Practitioner Family
PROC: 0W9G3ZZ Drainage of Peritoneal Cavity, Percutaneous Approach (ICD-10-PCS; principal; 2019-02-19)
DX: K56.600 Partial intestinal obstruction, unspecified as to cause (principal); C22.9 Malignant neoplasm of liver, not specified as primary or secondary; R18.8 Other ascites; K74.60 Unspecified cirrhosis of liver; E11.9 Type 2 diabetes mellitus without complications; E86.0 Dehydration; N28.9 Disorder of kidney and ureter, unspecified; K59.00 Constipation, unspecified; F10.11 Alcohol abuse, in remission; Z87.891 Personal history of nicotine dependence

== ENCOUNTER → 2019-02-26 | Outpatient (CLI) | payer OTHER | LOC: LAB.O 12:37 | PROVIDERS: ATTEND Family Medicine | DX: C22.9 Malignant neoplasm of liver, not specified as primary or secondary (principal); K74.60 Unspecified cirrhosis of liver ==

== ENCOUNTER → 2019-03-06 | Outpatient (CLI) | payer OTHER ==
--- NOTE | 2019-03-08 16:10 | NM ---
EXAM DESCRIPTION: Hepatobiliar w/CCK: Nuclear Medicine. CLINICAL HISTORY: CHOLELITHIASIS WITH OBSTRUCTION ascites. Calcified gallbladder wall, calcified polyps, and/or gallstones. COMPARISON: Ultrasound of abdomen, paracentesis of the abdomen, and abdominal radiographs February 2019. TECHNIQUE: Patient was given 8.1 mCi of technetium 99 M mebrofenin (Choletec) radiopharmaceutical IV. Anterior gamma camera images were obtained of the right upper quadrant at 5 minute intervals for 90 minutes . The patient returned for additional anterior image of the liver and abdomen 4 hours after administration of radiopharmaceutical. FINDINGS: After administration radial pharmaceutical, immediate visualization of the entire liver with minimal heterogeneity. Photopenic area abutting the abdirizak hepatis and common hepatic duct is most likely the gallbladder fossa. Timely visualization of the intrahepatic and extrahepatic ducts. Gallbladder was still not visible one hour after administration, so images were obtained for an additional 30 minutes. Gallbladder still not visualized. Photopenic area of the liver abutting the abdirizak hepatis may represent gallbladder fossa. 2 anterior images recorded for hours after radiopharmaceutical administration showed minimal hepatic activity and diffuse small bowel activity, but no activity or uptake in the gallbladder. IMPRESSION: 1. No intrahepatic or extrahepatic duct obstruction, but nonvisualization of the gallbladder 4 hours after administration of radiopharmaceutical could represent cystic duct obstruction. No gall stones on the prior ultrasound examination, but polyps were seen. Electronically signed by: Guerrero Davison MD 03/08/2019 4:08 PM ELECTRICAL TECHNOLOGY INSTRUCTOR
== END ==
LOC: NM 08:00
PROVIDERS: ATTEND Family Medicine
DX: K80.81 Other cholelithiasis with obstruction (principal)
CPT/HCPCS: 78227; A9537

== ENCOUNTER 2019-03-18 10:54 | Emergency (ER) | payer OTHER ==
[2019-03-18] MEDS ORDERED: SODIUM CHLORIDE 0.9% 1000ML 1,000 ML IVS ONE (11:34)
[2019-03-18] MEDS ORDERED: PROMETHAZINE HCL INJ 25 MG in SODIUM CHLORIDE 0.9% 50ML 50 ML IVPB ONE (11:34)
[2019-03-18] MEDS ORDERED: SODIUM CHLORIDE 0.9% 50ML 50 ML ONE (11:46)
[2019-03-18] MEDS ORDERED: PROMETHAZINE HCL INJ 25 MG/ML VIAL ONE (11:46)
--- NOTE | 2019-03-18 12:07 | RAD ---
EXAM DESCRIPTION: Abdomen Series CLINICAL HISTORY: 53 years Male, nv 4 days, hx previous sbo COMPARISON: February 21, 2019 FINDINGS: Single radiographic view of the chest demonstrates clear lung base on the right without free abdominal air. There is mild pleural blunting and thickening and stranding at the left lung base suggesting a mixed pleural and parenchymal mild inflammatory process. No free abdominal air noted. Moderate stool in the transverse and left colon is present with a small air-fluid level in the stomach. Small normal caliber small bowel loops in the right midabdomen and lower quadrant is evident. An element of constipation is suspected without evidence of small bowel obstruction. The appearance is improved from prior study February 21, 2019. IMPRESSION: 1. Abnormal right lung base with mixed pleural and parenchymal inflammatory changes suggesting atelectasis and/or bronchopneumonia with small effusion. 2. Considerable stool in the transverse and left colon as well as the sigmoid colon suggesting an element of constipation. No small bowel obstruction noted. Electronically signed by: Tejas Ma MD 03/18/2019 12:06 PM ECHOCARDIOGRAPHER
[2019-03-18] MEDS ORDERED: MAGNESIUM SULFATE PREMIX 2GM 2 GM in PREMIX BAG 1 BAG IVPB ONE (12:14)
[2019-03-18] MEDS ORDERED: PANTOPRAZOLE SODIUM IV 40 MG VIAL IV ONE (12:14)
[2019-03-18] MEDS ORDERED: MAGNESIUM SULFATE PREMIX 2GM 50 ML IVPB ONE (12:29)
[2019-03-18] MEDS ORDERED: BUTORPHANOL TARTRATE 2 MG/ML VIAL IV ONE (13:27)
[2019-03-18] MEDS ORDERED: ALUM & MAG HYDROX-SIMETHICONE 30 ML, LIDOCAINE VISCOUS 2% 15 ML PO ONE ×2 (13:51)
[2019-03-18] MEDS ORDERED: ALUM & MAG HYDROX-SIMETHICONE 30 ML UD ONE (14:29)
[2019-03-18] MEDS ORDERED: LIDOCAINE HCL 2% (MOUTH-THROAT) 15 ML UD ONE (14:29)
[2019-03-18] MEDS ORDERED: MAGNESIUM HYDROXIDE 30 ML UD PO ONE (14:52)
[2019-03-18 15:28] VITALS: O2SAT 99
--- NOTE | 2019-03-18 15:34 | ED.PDOC ---
History of Present Illness - General Chief Complaint: Abdominal Pain Stated Complaint: N/V,abdominal pain Time Seen by Provider: 03/18/19 11:32 Source: patient, family Exam Limitations: no limitations - History of Present Illness Initial Comments: the patient is a 53-year-old male presenting to the emergency room secondary to nausea and vomiting. The latest round of nausea and vomiting apparently started Saturday evening. He has had multiple cycles of nausea and vomiting over the last month to month and a half. He has been admitted here at this facility at least twice, once with an x-ray that was somewhat concerning for the possibility of a mild partial small bowel obstruction. He spent 2 weeks in the hospital almost for that. The patient does have a history of alcoholic cirrhosis. He does take lactulose as well as diuretics. No fevers. His only real abdominal pain is in the epigastric area. There is no generalized abdominal pain. He does have chronic mild pancytopenia long-term. Apparently the patient had some form of liver cancer 4 or 5 years ago that was treated with cryotherapy in [place]. he was apparently on hospice for a while but was taken off of it when there was no evidence of any return of cancer. According to his last discharge summary he is supposed to be taking neomycin, Lasix, lactulose and spironolactone. The patient shows no evidence of any fluid overload or significant ascites here today. He is alert and oriented. He was sent over from his primary care doctor's office due to the above issue. A HIDA scan has been done on the patient however I'm trying to get that report. No significant elevation of liver function tests. Timing/Duration: unsure Severity: moderate Improving Factors: nothing Worsening Factors: eating Associated Symptoms: loss of appetite, nausea/vomiting, weakness Allergies/Adverse Reactions: Allergies NO KNOWN ALLERGY Allergy (Verified 02/17/19 16:25) Home Medications: Ambulatory Orders NK 03/18/19 Review of Systems - Review of Systems Constitutional: States: malaise, weakness EENTM: States: no symptoms reported Respiratory: States: no symptoms reported Cardiology: States: no symptoms reported Gastrointestinal/Abdominal: States: abdominal pain, nausea, vomiting Genitourinary: States: no symptoms reported Musculoskeletal: States: no symptoms reported Skin: States: no symptoms reported Neurological: States: no symptoms reported Endocrine: States: no symptoms reported All other Systems: No Change from Baseline Past Medical History (General) - Patient Medical History Hx Seizures: No Hx Stroke: No Hx Asthma: No Hx of COPD: No Hx Congestive Heart Failure: No Hx Pacemaker: No Hx Hypertension: Yes Hx Diabetes: No Hx Gastroesophageal Reflux: No Hx Cancer: Yes - Liver Hx MRSA: No - Vaccination History Hx Influenza Vaccination: No Hx Pneumococcal Vaccination: No - Social History Hx Tobacco Use: Yes Hx Alcohol Use: Yes Hx Substance Use: No Hx Physical Abuse: No Hx Emotional Abuse: No Family Medical History - Family History Mother Family History: Unknown Cause of : kidney faiure Father Family History: No Known Living Status: Still Living Age at (years of age): 82 Physical Exam - Physical Exam General Appearance: Alert, Ill Appearing Eye Exam: bilateral normal Ears, Nose, Throat: hearing grossly normal, normal pharynx Neck: non-tender, supple Respiratory: lungs clear, normal breath sounds, no respiratory distress, no accessory muscle use Cardiovascular/Chest: normal peripheral pulses, regular rate, rhythm, no edema Peripheral Pulses: radial,right: 2+, radial,left: 2+ Gastrointestinal/Abdominal: non tender - minimal ascites. Mild epigastric discomfort palpation. No pain elsewhere., soft Rectal Exam: deferred Back Exam: no CVA tenderness, no vertebral tenderness Extremity: normal range of motion, no calf tenderness, normal capillary refill Neurologic: pan washer II-XII nml as tested, alert, normal mood/affect, oriented x 3 Skin Exam: normal color Comments: Vital Signs - 24 hr 03/18/19 03/18/19 03/18/19 11:14 12:26 14:26 Temperature 97.6 F Pulse Rate [ 82 69 84 Right Brachial] Respiratory 20 20 16 Rate Blood Pressure 159/94 137/79 137/81 [Right Arm] O2 Sat by Pulse 99 99 100 Oximetry 03/18/19 15:27 Temperature Pulse Rate [ 71 Right Brachial] Respiratory 20 Rate Blood Pressure 150/93 [Right Arm] O2 Sat by Pulse 99 Oximetry Progress - Progress Progress: 03/18/19 15:40 the patient is a 53-year-old male presenting to the emergency room secondary to 3-4 days of increasing nausea and vomiting. Source of this is not entirely certain. Most of the discomfort is in the epigastric area. He is receiving some IV fluids. He will also be receiving some potassium with his IV fluids for the hypokalemia. He does have mild acute renal insufficiency with this. The patient is being transferred for GI evaluation as this appears to be a recurrent process without obvious known cause at this time. transferring for specialty care. - Results/Orders Results/Orders: Laboratory Tests 03/18/19 03/18/19 03/18/19 11:45 11:45 11:45 WBC 3.5 L RBC 3.66 L Hgb 10.6 L Hct 31.5 L MCV 86.0 MCH 28.9 MCHC 33.5 RDW 14.1 Plt Count 142 MPV 7.0 L Absolute Neuts (auto) 2.70 Absolute Lymphs (auto) 0.50 L Absolute Monos (auto) 0.20 Absolute Eos (auto) 0.10 Absolute Basos (auto) 0.00 Neutrophils % 76.7 Lymphocytes % 13.6 L Monocytes % 6.6 Eosinophils % 1.9 Basophils % 1.2 PT 10.2 INR 1.03 PTT (SP) 27.2 Sodium 139 Potassium 3.1 L Chloride 105 Carbon Dioxide 25 Anion Gap 12.1 BUN 22 H Creatinine 1.27 BUN/Creatinine Ratio 17.3 Random Glucose 124 H Serum Osmolality 282.3 Lactic Acid Calcium 9.1 Magnesium 2.0 Total Bilirubin 0.9 AST 29 ALT 14 Alkaline Phosphatase 99 Ammonia Serum Total Protein 8.3 H Albumin 3.1 L Globulin 5.2 H Albumin/Globulin Ratio 0.6 L Amylase 190 H Lipase 79 H Urine Color Urine Appearance Urine pH Ur Specific [place] Urine Protein Urine Glucose (UA) Urine Ketones Urine Blood Urine Nitrite Urine Bilirubin Urine Urobilinogen Ur Leukocyte Esterase Urine RBC Urine WBC Ur Epithelial Cells Amorphous Sediment Urine Bacteria Coarse Granular Casts Urine Mucus 03/18/19 03/18/19 03/18/19 11:45 11:45 13:05 WBC RBC Hgb Hct MCV MCH MCHC RDW Plt Count MPV Absolute Neuts (auto) Absolute Lymphs (auto) Absolute Monos (auto) Absolute Eos (auto) Absolute Basos (auto) Neutrophils % Lymphocytes % Monocytes % Eosinophils % Basophils % PT INR PTT (SP) Sodium Potassium Chloride Carbon Dioxide Anion Gap BUN Creatinine BUN/Creatinine Ratio Random Glucose Serum Osmolality Lactic Acid 0.8 Calcium Magnesium Total Bilirubin AST ALT Alkaline Phosphatase Ammonia 55 H* Serum Total Protein Albumin Globulin Albumin/Globulin Ratio Amylase Lipase Urine Color Yellow Urine Appearance Clear Urine pH 7.0 Ur Specific [place] 1.020 Urine Protein Trace Urine Glucose (UA) Negative Urine Ketones Negative Urine Blood Small H Urine Nitrite Negative Urine Bilirubin Negative Urine Urobilinogen 1.0 Ur Leukocyte Esterase Negative Urine RBC 5-10 H Urine WBC 0-1 Ur Epithelial Cells 1-3 Amorphous Sediment 1+ Urine Bacteria Rare Coarse Granular Casts 0-1 Urine Mucus Small acute abdominal series shows left lower lung field abnormality. This looks most like atelectasis however pneumonia cannot be ruled out. on comparison it was present on his chest x-ray from February. There is moderate stool burden in the colon. No evidence of any obstruction. No free air. Departure - Departure Clinical Impression: Nausea and vomiting in adult, Hypokalemia, Dehydration, Acute renal insufficiency Disposition: Transfer to Hospital Departure Forms: ED Discharge - Pt. Copy, Patient Portal Self Enrollment Referrals: Camilo Parker MD [Primary Care Provider] - 1-2 Weeks Home Medications: Ambulatory Orders NK 03/18/19 Transfer to Outside Facility - Transfer Information Decision to Transfer Date: 03/18/19 Decision to Transfer Time: 15:43 Reason for Transfer: required specialist not available Accepting Provider:: dr villatoro/norberto Accepting Facility: [facility]
[2019-03-18] MEDS ORDERED: KCL 20MEQ/WATER FOR INJ 100ML 20 MEQ in PREMIX BAG 1 BAG IVPB ONE (15:44)
[2019-03-18] MEDS ORDERED: KCL 20MEQ/WATER FOR INJ 100ML 100 ML IVPB ONE (15:48)
[2019-03-18 16:03] VITALS: BP 131/79; TEMP 98.1
== END 2019-03-18 16:08 | disposition short-term general hospital (02) ==
LOC: ER 10:54
DX: R11.2 Nausea with vomiting, unspecified (principal); E86.0 Dehydration; E87.6 Hypokalemia; N28.9 Disorder of kidney and ureter, unspecified; R10.13 Epigastric pain; D61.818 Other pancytopenia; I10 Essential (primary) hypertension; Z85.05 Personal history of malignant neoplasm of liver; Z87.891 Personal history of nicotine dependence; Z87.19 Personal history of other diseases of the digestive system
CPT/HCPCS: 74019; 80053; 81001; 82140; 82150; 83605; 83690; 83735; 85025; 85610; 85730; A4216; J0595; J2550; J3475; J3480; J7030

== ENCOUNTER 2019-03-30 05:54 | Emergency (ER) | payer OTHER ==
[2019-03-30] MEDS ORDERED: HALOPERIDOL LACTATE INJ 5 MG/ML VIAL IV ONE (06:08)
[2019-03-30] MEDS ORDERED: HYDROmorphone HCL INJ 2 MG/ML VIAL IV ONE (06:10)
[2019-03-30] MEDS ORDERED: ONDANSETRON INJ 4 MG/2 ML VIAL IV ONE (06:11)
--- NOTE | 2019-03-30 06:20 | ED.PDOC ---
History of Present Illness - General Information Source: patient, RN notes reviewed, Vital Signs reviewed, family Additional Information: this is a patient with history of liver disease, cirrhosis, ascites, gallbladder issues, recent hospitalization due to small bowel obstruction. This patient is on morphine and methadone at home, but not currently on pain management patient presents with excruciating abdominal pain this pain is been going on for weeks, 12/11 pain mostly in the right upper quadrant area patient denies any change in bowel habits. patient denies nausea and vomiting patient has had a long complicated medical history and patient has never seen a liver specialist patient did mention that recently it was found that patient had some liver spots that could be liver cancer patient does not drink and does not smoke or vape patient use to be on hospice - History of Present Illness Abdominal Pain Onset Location: RUQ, generalized abdomen Quality: severe Timing/Duration: other - 3 weeks Improving Factors: nothing Worsening Factors: nothing Associated Symptoms: denies symptoms <Blaine Melendez - Last Filed: 03/30/19 06:59> <Reynaldo Betancourt - Last Filed: 03/30/19 08:13> - General Chief Complaint: Abdominal Pain Stated Complaint: mid abdomen pain Time Seen by Provider: 03/30/19 06:07 Review of Systems - Review of Systems Constitutional: Denies: diaphoresis, fever, malaise, weakness EENTM: Denies: eye pain, blurred vision, tearing, double vision, ear pain, ear discharge, nose pain, nose congestion, throat pain, throat swelling, mouth pain, mouth swelling Respiratory: Denies: cough, orthopnea, short of breath, stridor, wheezing Cardiology: Denies: chest pain, edema, palpitations, syncope Gastrointestinal/Abdominal: States: abdominal pain. Denies: constipation, diarrhea, nausea, vomiting Genitourinary: Denies: discharge, dysuria, frequency, hematuria Musculoskeletal: Denies: back pain, gout, joint pain, joint swelling, muscle pain, muscle stiffness, neck pain Skin: Denies: change in color, change in hair/nails, dryness, lesions, lumps, rash Neurological: Denies: anxiety, depressed, emotional problems, headache, numbness, paresthesia, pre-existing deficit, seizure, tingling, tremors, weakness Endocrine: Denies: excessive sweating, flushing, intolerance to cold, intoleranc e to heat, increased hunger, increased thirst, increased urine, unexplained weight gain, unexplained weight loss Hematologic/Lymphatic: Denies: anemia, blood clots, easy bleeding, easy bruising, swollen glands All other Systems: Reviewed and Negative <Manoj DashadoBlaine - Last Filed: 03/30/19 06:59> Past Medical History (General) - Patient Medical History Hx Seizures: No Hx Stroke: No Hx Asthma: No Hx of COPD: No Hx Congestive Heart Failure: No Hx Pacemaker: No Hx Hypertension: Yes Hx Diabetes: No Hx Gastroesophageal Reflux: No Hx Cancer: Yes - Liver Hx MRSA: No - Vaccination History Hx Influenza Vaccination: No Hx Pneumococcal Vaccination: No - Social History Hx Tobacco Use: Yes Hx Alcohol Use: Yes Hx Substance Use: No Hx Physical Abuse: No Hx Emotional Abuse: No <Manoj DashadoBlaine - Last Filed: 03/30/19 06:59> Family Medical History - Family History Mother Family History: Unknown Cause of : kidney faiure Father Family History: No Known Living Status: Still Living Age at (years of age): 82 <Blaine Melendez - Last Filed: 03/30/19 06:59> Physical Exam - Physical Exam General Appearance: Anxious, Obvious distress, Other - patient appear in distress and in pain Eyes, Ears, Nose, Throat Exam: PERRL/EOMI, normal ENT inspection, TMs normal, pharynx normal Neck: non-tender, full range of motion, supple, normal inspection Respiratory: chest non-tender, lungs clear, normal breath sounds, no respiratory distress, no accessory muscle use, respiratory distress Cardiovascular/Chest: normal peripheral pulses, no edema, no gallop Gastrointestinal/Abdominal: normal bowel sounds, tenderness, other - right upper quadrant pain, hepatomegaly, no distention, + bowel sounds Extremity: normal range of motion, non-tender, normal inspection, no pedal edema, no calf tenderness 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 patient presents with excruciating abdominal pain, patient is not morphine and methadone and no wiht no improvements, Im concerned for abdominal obstruction since patient stated that his breath smell like feces, patient did not have an acute abdomen on physical exam. I will give patient dilaudid and zofran for pain and vomiting and I will order and abdominal-pelvic ct to rule out obstruction. 03/30/19 06:32 patient will be transfer to the morning physician <Blaine Melendez - Last Filed: 03/30/19 06:59> - Progress Progress: 03/30/19 07:34 Laboratory Tests 03/30/19 03/30/19 06:25 06:25 WBC 4.4 L RBC 3.63 L Hgb 10.4 L Hct 31.3 L MCV 86.1 MCH 28.6 MCHC 33.2 RDW 14.8 H Plt Count 133 MPV 7.6 Absolute Neuts (auto) 3.20 Absolute Lymphs (auto) 0.60 L Absolute Monos (auto) 0.50 Absolute Eos (auto) 0.10 Absolute Basos (auto) 0.00 Neutrophils % 73.6 Lymphocytes % 13.4 L Monocytes % 10.7 H Eosinophils % 1.4 Basophils % 0.9 Sodium 132 L Potassium 3.4 L Chloride 103 Carbon Dioxide 20 L Anion Gap 12.4 BUN 23 H Creatinine 1.43 H BUN/Creatinine Ratio 16.1 Random Glucose 158 H Serum Osmolality 271.5 L Calcium 8.5 Total Bilirubin 1.9 H AST 86 H ALT 36 Alkaline Phosphatase 368 H Serum Total Protein 8.8 H Albumin 3.0 L Globulin 5.8 H Albumin/Globulin Ratio 0.5 L Reporting MD: Radha Beasley Gatehouse Attendant date: Dictation date: EXAM DESCRIPTION: X-ray single view chest. CLINICAL HISTORY: 54 years Male, abdominal pain COMPARISON: 03/18/2019 TECHNIQUE: Single portable x-ray view of the chest performed on 03/30/2019 at 6:33 AM FINDINGS: The lungs are hypoinflated. There is blunting of the left lateral costophrenic sulcus and there are linear opacities in the left lung base which may be due to fibrosis and/or atelectasis. A small effusion is not excluded. Findings are similar when compared to the prior study. The patient's chin projects over the superior mediastinum. There is no evidence of a pneumothorax. The cardiac silhouette is normal in size and configuration. The mediastinal contours are normal. No acute osseous abnormality is identified. No focal soft tissue abnormalities are seen. Lines and tubes: None. IMPRESSION: 1. Hypoinflation of the lungs. 2. Stable blunting of the left lateral costophrenic angle with linear opacities in the left lung base which may be due to a combination of pleural fluid, fibrosis and/or atelectasis. 3. The patient's chin projects over the superior mediastinum. Electronically signed by: Radha Beasley DO 03/30/2019 7:05 AM [employer] INST[employer] Reporting MD: Pilo Bryan Gatehouse Attendant date: Dictation date: EXAM DESCRIPTION: Abdomen/Pelvis w/Contrast CLINICAL HISTORY: abdominal pain COMPARISON: February 17, 2019 TECHNIQUE: CT of the abdomen and Pelvis was performed without IV contrast. This exam was performed according to our departmental dose-optimization program, which includes automated exposure control, adjustment of the mA and/or kV according to patient size and/or use of iterative reconstruction technique. FINDINGS: Bilateral gynecomastia partially visualized. Trace amount of left pleural fluid. Atelectasis versus developing pneumonia posteriorly in the left lung base. Moderate amount of ascites. There are a few slightly enlarged lymph nodes in the gastrohepatic ligament measuring up to 1.4 cm short axis diameter, stable from the prior exam. No abdominal aortic aneurysm. Cholelithiasis with gallbladder dilation, the gallbladder measures up to 4.7 cm transverse diameter. No pericholecystic fluid or inflammation. No calcified gallstone in the common bile duct. The liver is of diffusely heterogeneous internal echogenicity with subtle contour nodularity, no mass or other focal liver lesion. The spleen is slightly enlarged, measuring just over 14 cm in length. The pancreas, adrenals and kidneys are unremarkable. Concentric wall thickening involves several small bowel loops. Feculent material is noted in a few distal small bowel loops which are at the upper limits of normal size. Moderate amount of stool and gas scattered throughout the colon without colonic wall thickening or pericolonic inflammation. No bladder wall thickening or bladder calcification. The prostate is not enlarged. Degenerative changes in the lumbar spine at multiple levels. IMPRESSION: Diffusely heterogeneous appearance of the liver with ascites and mild splenomegaly, all suggestive of hepatic cirrhosis. No mass or other focal liver lesion. Tiny left-sided pleural effusion with overlying atelectasis or pneumonia in the left lung base. Concentric small bowel wall thickening which may be related to enteritis or hypoproteinemia. Feculent material in a few distal small bowel loops suggests increased small bowel transit time with upper normal caliber of the involved small bowel loops probably related to ileus rather than developing small bowel obstruction. If symptoms persist or worsen, follow-up KUB or CT is suggested. Cholelithiasis with gallbladder dilation but no CT evidence of cholecystitis. If clinically suspicious, right upper quadrant ultrasound is recommended. Several slightly enlarged upper abdominal lymph nodes, stable from February, and likely reactive. Gynecomastia. 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 Pneumonia Pleural Effusion Abdominal Pain Ascites-will admit zosyn vancomycin 03/30/19 07:45 Laboratory Tests 03/30/19 03/30/19 06:25 06:25 WBC 4.4 L RBC 3.63 L Hgb 10.4 L Hct 31.3 L MCV 86.1 MCH 28.6 MCHC 33.2 RDW 14.8 H Plt Count 133 MPV 7.6 Absolute Neuts (auto) 3.20 Absolute Lymphs (auto) 0.60 L Absolute Monos (auto) 0.50 Absolute Eos (auto) 0.10 Absolute Basos (auto) 0.00 Neutrophils % 73.6 Lymphocytes % 13.4 L Monocytes % 10.7 H Eosinophils % 1.4 Basophils % 0.9 Sodium 132 L Potassium 3.4 L Chloride 103 Carbon Dioxide 20 L Anion Gap 12.4 BUN 23 H Creatinine 1.43 H BUN/Creatinine Ratio 16.1 Random Glucose 158 H Serum Osmolality 271.5 L Calcium 8.5 Total Bilirubin 1.9 H AST 86 H ALT 36 Alkaline Phosphatase 368 H Serum Total Protein 8.8 H Albumin 3.0 L Globulin 5.8 H Albumin/Globulin Ratio 0.5 L Lipase markedly elevated, acute pancreatitis 03/30/19 07:58 Spoke to Chente Ohara who advises we speak to Dr. Andres. Spoke to Dr. Andres who advises transfer to [facility] at this time Dr. Harding Accepts 08:10am 03/30/19 08:11 <Reynaldo Betancourt - Last Filed: 03/30/19 08:13> Departure <Blaine Melendez Angel - Last Filed: 03/30/19 06:59> <Reynaldo Betancourt - Last Filed: 03/30/19 08:13> - Departure Clinical Impression: Biliary colic, Pleural effusion Abdominal pain Qualifiers: Abdominal location: right upper quadrant Qualified Code(s): R10.11 - Right upper quadrant pain Acute pancreatitis Qualifiers: Pancreatitis type: unspecified pancreatitis type Acute pancreatitis complication: unspecified Qualified Code(s): K85.90 - Acute pancreatitis without necrosis or infection, unspecified Pneumonia Qualifiers: Pneumonia type: due to unspecified organism Laterality: unspecified laterality Lung location: unspecified part of lung Qualified Code(s): J18.9 - Pneumonia, unspecified organism Disposition: Transfer to Hospital Condition: Fair Departure Forms: ED Discharge - Pt. Copy, Patient Portal Self Enrollment Instructions: DI for Abdominal Pain-Adult Referrals: Camilo Parker MD [Primary Care Provider] - 1-2 Weeks Home Medications: Ambulatory Orders Cyclobenzaprine HCl [Flexeril] 10 mg PO TID PRN 03/30/19 Ondansetron Odt [Zofran ODT] 4 mg PO Q6HRS PRN 03/30/19 Pantoprazole Tablet [Protonix] 40 mg PO ACBK 03/30/19
--- NOTE | 2019-03-30 07:06 | RAD ---
EXAM DESCRIPTION: X-ray single view chest. CLINICAL HISTORY: 54 years Male, abdominal pain COMPARISON: 03/18/2019 TECHNIQUE: Single portable x-ray view of the chest performed on 03/30/2019 at 6:33 AM FINDINGS: The lungs are hypoinflated. There is blunting of the left lateral costophrenic sulcus and there are linear opacities in the left lung base which may be due to fibrosis and/or atelectasis. A small effusion is not excluded. Findings are similar when compared to the prior study. The patient's chin projects over the superior mediastinum. There is no evidence of a pneumothorax. The cardiac silhouette is normal in size and configuration. The mediastinal contours are normal. No acute osseous abnormality is identified. No focal soft tissue abnormalities are seen. Lines and tubes: None. IMPRESSION: 1. Hypoinflation of the lungs. 2. Stable blunting of the left lateral costophrenic angle with linear opacities in the left lung base which may be due to a combination of pleural fluid, fibrosis and/or atelectasis. 3. The patient's chin projects over the superior mediastinum. Electronically signed by: Radha Beasley DO 03/30/2019 7:05 AM [employer] TE[employer]ER
[2019-03-30 07:15] VITALS: O2SAT 97
--- NOTE | 2019-03-30 07:27 | CT ---
EXAM DESCRIPTION: Abdomen/Pelvis w/Contrast CLINICAL HISTORY: abdominal pain COMPARISON: February 17, 2019 TECHNIQUE: CT of the abdomen and Pelvis was performed without IV contrast. This exam was performed according to our departmental dose-optimization program, which includes automated exposure control, adjustment of the mA and/or kV according to patient size and/or use of iterative reconstruction technique. FINDINGS: Bilateral gynecomastia partially visualized. Trace amount of left pleural fluid. Atelectasis versus developing pneumonia posteriorly in the left lung base. Moderate amount of ascites. There are a few slightly enlarged lymph nodes in the gastrohepatic ligament measuring up to 1.4 cm short axis diameter, stable from the prior exam. No abdominal aortic aneurysm. Cholelithiasis with gallbladder dilation, the gallbladder measures up to 4.7 cm transverse diameter. No pericholecystic fluid or inflammation. No calcified gallstone in the common bile duct. The liver is of diffusely heterogeneous internal echogenicity with subtle contour nodularity, no mass or other focal liver lesion. The spleen is slightly enlarged, measuring just over 14 cm in length. The pancreas, adrenals and kidneys are unremarkable. Concentric wall thickening involves several small bowel loops. Feculent material is noted in a few distal small bowel loops which are at the upper limits of normal size. Moderate amount of stool and gas scattered throughout the colon without colonic wall thickening or pericolonic inflammation. No bladder wall thickening or bladder calcification. The prostate is not enlarged. Degenerative changes in the lumbar spine at multiple levels. IMPRESSION: Diffusely heterogeneous appearance of the liver with ascites and mild splenomegaly, all suggestive of hepatic cirrhosis. No mass or other focal liver lesion. Tiny left-sided pleural effusion with overlying atelectasis or pneumonia in the left lung base. Concentric small bowel wall thickening which may be related to enteritis or hypoproteinemia. Feculent material in a few distal small bowel loops suggests increased small bowel transit time with upper normal caliber of the involved small bowel loops probably related to ileus rather than developing small bowel obstruction. If symptoms persist or worsen, follow-up KUB or CT is suggested. Cholelithiasis with gallbladder dilation but no CT evidence of cholecystitis. If clinically suspicious, right upper quadrant ultrasound is recommended. Several slightly enlarged upper abdominal lymph nodes, stable from February, and likely reactive. Gynecomastia. Electronically signed by: Pilo Bryan MD 03/30/2019 7:26 AM [facility]
[2019-03-30] MEDS ORDERED: PIPERACILLIN/TAZOBACTAM 3.375 GM in SODIUM CHLORIDE 0.9% 100ML 100 ML IVPB ONE (07:43)
[2019-03-30] MEDS ORDERED: VANCOMYCIN HCL INJ 1,000 MG in SODIUM CHLORIDE 0.9% 250ML 250 ML IVPB ONE (07:44)
[2019-03-30] MEDS ORDERED: PIPERACILLIN/TAZOBACTAM 3.375 GM VIAL IVPB ONE (07:49)
[2019-03-30] MEDS ORDERED: SODIUM CHLORIDE 0.9% 100ML 100 ML IVPB ONE (07:49)
[2019-03-30] MEDS ORDERED: SODIUM CHLORIDE 0.9% 1000ML 1,000 ML IVS ONE ×2 (08:02→08:04)
[2019-03-30 08:25] VITALS: BP 134/82
[2019-03-30] MEDS ORDERED: VANCOMYCIN HCL INJ 1,000 MG VIAL IVPB ONE (08:33)
[2019-03-30] MEDS ORDERED: SODIUM CHLORIDE 0.9% 250ML 250 ML ONE (08:33)
[2019-03-30 09:26] VITALS: TEMP 98
== END 2019-03-30 08:45 | disposition short-term general hospital (02) ==
LOC: ER 05:54
DX: K85.90 Acute pancreatitis without necrosis or infection, unspecified (principal); J18.9 Pneumonia, unspecified organism; K80.20 Calculus of gallbladder without cholecystitis without obstruction; J90 Pleural effusion, not elsewhere classified; K74.60 Unspecified cirrhosis of liver; I10 Essential (primary) hypertension; Z87.891 Personal history of nicotine dependence
CPT/HCPCS: 36415; 71045; 74177; 80053; 81001; 82140; 83690; 85025; 87040; 93005; J1170; J2405; J2543; J3370; J7030; J7050